=== PATIENT | male | born 2005 | race Caucasian/White ===

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

== ENCOUNTER 2024-02-22 14:29 | Emergency (ER) | payer OTHER ==
[2024-02-22 14:36] VITALS: BP 113/75; PULSE 66; RESP 18; TEMP 98.7; BMI 28.1
== END 2024-02-22 16:10 | disposition home or self-care (01) ==
LOC: JER 14:29
DX: F07.81 Postconcussional syndrome (principal); R42 Dizziness and giddiness; R51.9 Headache, unspecified
CPT/HCPCS: 70450-TC; 99284-25